=== PATIENT | female | born 1955 | race Caucasian/White ===

== ENCOUNTER 2023-05-08 10:17 | Outpatient (CLI) | payer MEDICARE, BC, SELFPAY ==
--- NOTE | ~2023-05-08 | CT_ITS ---
EXAMINATION: CT sinus wo con DATE: 05/08/2023 10:31 INDICATION: Dysfunction of both eustachian tubes. Sinusitis. TECHNIQUE: Computed tomography (CT) of the paranasal sinuses was performed without intravenous contra st. Iterative reconstruction technique was employed. The dose-length product was 254.35 mGy-cm. COMPARISON: None FINDINGS: There is minimal mucosal thickening in right frontal recess. There is minimal mucosal thick ening in the bilateral ethmoid sinuses, sphenoid sinuses, and maxillary sinuses. There is rightward d eviation of the nasal septum. The ostiomeatal units are patent. The nasopharynx is unremarkable. Ther e are changes of right mastoidectomy. There is material in the tympanic cavities and mastoid air cell s. There is absence of portions of the ossicles. 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 IMPRESSION: 1. Rightward deviation of the nasal septum. 2. Minimal mucosal thickening in the paranasal sinuses. 3. Material in the right tympanic cavity and right mastoid air cells with changes of mastoidectomy an d stapes implant. 4. Material in the left tympanic cavity and left mastoid air cells with absence of portions of the os sicles, consistent with chronic otitis media versus cholesteatoma. Reviewed, dictated and finalized at location A. IMPRESSION: 1. Rightward deviation of the nasal septum. 2. Minimal mucosal thickening in the paranasal sinuses. 3. Material in the right tympanic cavity and right mastoid air cells with goyal es of mastoidectomy and stapes implant. 4. Material in the left tympanic cavity and left mastoid air cells with absence of portions of the ossicles, consistent with chronic otitis media versus octavio steatoma.
== END 2023-05-08 10:18 ==
LOC: MICIMG 10:20
PROVIDERS: PCP Otolaryngology
DX: H69.93 Unspecified Eustachian tube disorder, bilateral (principal); J34.2 Deviated nasal septum; Z98.890 Other specified postprocedural states
CPT/HCPCS: 70486